=== PATIENT | female | born 1935 | race Asian ===

== ENCOUNTER 2019-02-07 18:48 | Emergency (ER) | payer MEDICARE, OTHER ==
[~2019-02-07] VITALS: Ht 152.4 cm; Wt 63.5 kg
--- NOTE | 2019-02-07 19:11 | NUR ---
SEEN AND EXAMINED BY
--- NOTE | 2019-02-07 19:11 | NUR ---
PT CAME TO ER BED 4 WITH INCREASING RIGHT LEG CALF PAIN. PT STATES THAT SHE JUST ARRIVED TO [place] AFTER A 7HOUR CAR RIDE FROM [place]. AAOX4. NO SOB. BREATHING EVENLY UNLABORED. PEDAL PULSE EQUALLY STRONG. CONNECTED TO MONITOR.
[2019-02-07] MEDS ORDERED: ACETAMINOPHEN 325 MG TABLET PO ONE (19:30)
[2019-02-07] MEDS ORDERED: ACETAMINOPHEN 325 MG TABLET ONE (19:35)
--- NOTE | 2019-02-07 19:39 | NUR ---
US AT BEDSIDE
--- NOTE | 2019-02-07 20:24 | NUR ---
AT BEDSIDE FOR RE-EVAL.
[2019-02-07 20:30] VITALS: BP 141/65
--- NOTE | 2019-02-07 20:30 | NUR ---
Patient discharged to home in stable condition. Written and verbal after care instructions given. Patient verbalizes understanding of instruction.
== END 2019-02-07 20:31 | disposition home or self-care (01) ==
LOC: ER 18:52
DX: M79.604 Pain in right leg (principal); I10 Essential (primary) hypertension; Z96.653 Presence of artificial knee joint, bilateral
CPT/HCPCS: 93971-TC